=== PATIENT | male | born 1980 | race Hispanic/Latino ===

== ENCOUNTER 2022-05-18 18:50 | Emergency (ER) | payer OTHER ==
[~2022-05-18] VITALS: Ht 180.3 cm; Wt 98.0 kg
[2022-05-18 19:06] VITALS: BP 99/53
[2022-05-18] MEDS ORDERED: NS 1000ML 1,000 ML ONE ×3 (19:23→21:27)
[2022-05-18] MEDS ORDERED: ZOFRAN IV STA (19:28)
[2022-05-18] MEDS ORDERED: NS 1000ML 1,000 ML IV ONE ×3 (19:30→21:30)
[2022-05-18] MEDS ORDERED: ZOFRAN ONE (19:32)
[2022-05-18 19:52] LABS: BASOPHIL # 0.1 10^3/uL (0.0-0.1); BASOPHIL % 0.3 % (0.0-0.2); EOSINOPHIL # 0.1 10^3/uL (0.0-0.2); EOSINOPHIL % 0.4 % (0.0-5.0); LYMPHOCYTES # 2.96 10^3/uL1 (1.0-4.8); MEAN CORP HGB 32.3 pg (26-34); MONOCYTES # 1.5 10^3/uL (0.3-0.8); MONOCYTES % 8.3 % (5.0-12.0); NEUTROPHIL # 13.8 10^3/uL (1.8-7.7); NEUTROPHILS % 74.7 % (41.0-85.0); PLATELET COUNT 352 10^3/uL (150-400); RED CELL DISTRIBUTION WIDTH 12.1 % (11.5-14.5)
[2022-05-18 19:56] LABS: BILIRUBIN,URINE 1+ (NEGATIVE)
[2022-05-18 20:33] LABS: CARBON DIOXIDE 14.1 mmol/L (20.0-32)
[2022-05-18 21:40] LABS: BASOPHIL % 0.2 % (0.0-0.2); EOSINOPHIL % 0.1 % (0.0-5.0); LYMPHOCYTES # 1.12 10^3/uL1 (1.0-4.8); LYMPHOCYTES % 7.3 % (24.0-44.0); MEAN CORP HGB 32.4 pg (26-34); MONOCYTES # 0.8 10^3/uL (0.3-0.8); MONOCYTES % 5.4 % (5.0-12.0); NEUTROPHIL # 13.2 10^3/uL (1.8-7.7); NEUTROPHILS % 86.7 % (41.0-85.0); PLATELET COUNT 245 10^3/uL (150-400); RED CELL DISTRIBUTION WIDTH 12.3 % (11.5-14.5)
[2022-05-18 21:50] LABS: CARBON DIOXIDE 19.9 mmol/L (20.0-32)
--- NOTE | 2022-05-18 22:02 | ER.PDOC ---
General Chief Complaint: Extremities Stated Complaint: LEG CRAMPS,N/V Time seen by MD: 19:44 Source: patient Exam Limitations: no limitations History of Present Illness Initial Comments pt states he has been working outside and felt dehydrated. Skylar started vomiting today and it was oconstant. He felt like he was having heat exhaustion. NO known alleviating or exacerbating factors. Severity is modertte Allergies: Coded Allergies: Penicillins (Verified Allergy, Unknown, RASH, 05/18/22) Vital Signs First Vital Signs Date Time Temp Pulse Resp B/P (MAP) Pulse Ox O2 Delivery O2 Flow Rate FiO2 05/18/22 19:06 97.8 119 23 95 05/18/22 19:06 99/53 (68) Room Air* 0 21 Last Vital Signs Date Time Temp Pulse Resp B/P (MAP) Pulse Ox O2 Delivery O2 Flow Rate FiO2 05/18/22 22:32 97.8 90 23 134/96 (109) 95 Room Air* 0 21 Social History Drug Use: marijuana Reviewed Nursing Reviewed: Vital Signs, Abn. Noted, Nursing Assessment Constitutional: no symptoms reported EENTM: no symptoms reported Respiratory: no symptoms reported Cardiovascular: no symptoms reported Gastrointestinal: nausea, vomiting Musculoskeletal: no symptoms reported Skin: no symptoms reported Endocrine: no symptoms reported All Other Systems: Reviewed and Negative Physical Exam General Appearance: No Apparent Distress, WD/WN HEENT: PERRL/EOMI, Normal ENT Inspection, Pharynx Normal Neck: Non-Tender, Full Range of Motion, Supple, Normal Inspection Respiratory: chest non-tender, lungs clear, normal breath sounds, no respiratory distress Cardiovascular: Normal Peripheral Pulses, Regular Rate, Rhythm Gastrointestinal: Normal Bowel Sounds, No Organomegaly, Soft Back: Normal Inspection, No CVA Tenderness Extremities: Normal Range of Motion, Non-Tender Neurologic/Psychiatric: youth corrections officer II-XII NML as Tested, No Motor/Sensory Deficits, Alert, Normal Mood/Affect Skin: Normal Color, Warm/Dry Results/Orders Results/Orders Orders - ALYSON BERNSTEIN MD Cbc With Auto Diff (05/18/22 19:06) Comprehensive Metabolic Panel (05/18/22 19:06) Lipase (05/18/22 19:06) Urinalysis (05/18/22 19:06) Drug Scrn Med W Confirmation (05/18/22 19:06) Creatine Kinase Mb (05/18/22 19:06) 0.9 % Sodium Chloride (Ns 1000ml) (05/18/22 19:30) 0.9 % Sodium Chloride (Ns 1000ml) (05/18/22 19:34) 0.9 % Sodium Chloride (Ns 1000ml) (05/18/22 19:23) Ondansetron Hcl/Pf (Zofran) (05/18/22 19:28) 0.9 % Sodium Chloride (Ns 1000ml) (05/18/22 19:31) Ondansetron Hcl/Pf (Zofran) (05/18/22 19:32) Urine Culture (05/18/22 19:39) 0.9 % Sodium Chloride (Ns 1000ml) (05/18/22 21:30) 0.9 % Sodium Chloride (Ns 1000ml) (05/18/22 21:27) Cbc With Auto Diff (05/18/22 21:29) Basic Metabolic Panel (05/18/22 21:29) Vital Signs Date Time Temp Pulse Resp B/P (MAP) Pulse Ox O2 Delivery O2 Flow Rate FiO2 05/18/22 22:32 97.8 90 23 134/96 (109) 95 Room Air* 0 21 05/18/22 19:16 Room Air* 0 21 05/18/22 19:06 97.8 119 23 99/53 (68) 95 Room Air* 0 21 05/18/22 19:06 97.8 119 23 05/18/22 19:06 97.8 119 23 95 Administered Medications Medications (Trade) Dose Ordered Sig/Demetrius Route PRN Reason Start Time Stop Time Status Last Admin Dose Admin Ondansetron HCl (Zofran) 4 mg STAT STAT IV 05/18/22 19:28 05/18/22 19:29 DC 05/18/22 19:34 4 MG Sodium Chloride 1,000 ml @ 0 mls/hr Q0M ONCE IV 05/18/22 19:30 05/18/22 19:31 DC 05/18/22 19:24 999 MLS/HR Laboratory Tests Test 05/18/22 19:35 05/18/22 19:39 05/18/22 21:34 White Blood Count 18.5 10^3/uL (4.5-11.0) H 15.3 10^3/uL (4.5-11.0) H Red Blood Count 6.06 10^6/uL (4.50-5.90) H 5.27 10^6/uL (4.50-5.90) Hemoglobin 19.6 g/dL (13.9-16.3) H 17.1 g/dL (13.9-16.3) H Hematocrit 54.5 % (37.0-53.0) H 48.4 % (37.0-53.0) Mean Corpuscular Volume 89.9 fL (78-100) 91.8 fL (78-100) Mean Corpuscular Hemoglobin 32.3 pg (26-34) 32.4 pg (26-34) Mean Corpuscular Hemoglobin Concent 36.0 g/dL (33-36.5) 35.3 g/dL (33-36.5) Red Cell Distribution Width 12.1 % (11.5-14.5) 12.3 % (11.5-14.5) Platelet Count 352 10^3/uL (150-400) 245 10^3/uL (150-400) Mean Platelet Volume 11.0 fL (7.8-11.0) 10.9 fL (7.8-11.0) Neutrophils (%) (Auto) 74.7 % (41.0-85.0) 86.7 % (41.0-85.0) H Lymphocytes (%) (Auto) 16.0 % (24.0-44.0) L 7.3 % (24.0-44.0) L Monocytes (%) (Auto) 8.3 % (5.0-12.0) 5.4 % (5.0-12.0) Neutrophils # (Auto) 13.8 10^3/uL (1.8-7.7) H 13.2 10^3/uL (1.8-7.7) H Lymphocytes # (Auto) 2.96 10^3/uL1 (1.0-4.8) 1.12 10^3/uL1 (1.0-4.8) Monocytes # (Auto) 1.5 10^3/uL (0.3-0.8) H 0.8 10^3/uL (0.3-0.8) Absolute Immature Granulocyte (auto 0.06 10^3 u/L (0-2) 0.05 10^3 u/L (0-2) Absolute Eosinophils (auto) 0.1 10^3/uL (0.0-0.2) 0.0 10^3/uL (0.0-0.2) Immature Granulocytes % 0.30 % (0.00-0.50) 0.30 % (0.00-0.50) Eosinophils % 0.4 % (0.0-5.0) 0.1 % (0.0-5.0) Basophils % 0.3 % (0.0-0.2) H 0.2 % (0.0-0.2) Basophils # 0.1 10^3/uL (0.0-0.1) 0.0 10^3/uL (0.0-0.1) Sodium Level 134 mmol/L (132-145) 138 mmol/L (132-145) Potassium Level 3.5 mmol/L (3.6-5.2) L 3.6 mmol/L (3.6-5.2) Chloride Level 96.0 mmol/L (96-109) 102.0 mmol/L (96-109) Carbon Dioxide Level 14.1 mmol/L (20.0-32) L 19.9 mmol/L (20.0-32) L Anion Gap 27.4 19.7 Blood Urea Nitrogen 32 mg/dL (7-18) H 27 mg/dL (7-18) H Creatinine 1.92 mg/dL (0.59-1.40) H 1.47 mg/dL (0.59-1.40) H Estimated GFR () 47.2 (>/=60) 64.2 (>/=60) Est GFR (CKD-EPI)(Non-Afr [place]ian) 39.0 (>/=60) 53.1 (>/=60) BUN/Creatinine Ratio 16.0 18.0 Glucose Level 121 mg/dL (70-110) H 86 mg/dL (70-110) Calcium Level 10.8 mg/dL (8.4-10.5) H 8.7 mg/dL (8.4-10.5) Total Bilirubin 1.5 mg/dL (0.2-1.0) H Aspartate Amino Transferase (AST) 24 U/L (0-35) Alanine Aminotransferase (ALT) 30 U/L (12-78) Alkaline Phosphatase 81 U/L (50-136) Creatine Kinase MB 4.2 ng/mL (0.5-3.6) H Total Protein 10.0 g/dL (6.4-8.2) H Albumin 5.8 g/dL (3.4-5.0) H Globulin 4.2 Albumin/Globulin Ratio 1.380 Lipase 98 U/L (114-286) L Urine Collection Type RANDOM Urine Color YELLOW Urine Appearance HAZY Urine Bilirubin 1+ (NEGATIVE) H Urine Ictotest NEGATIVE (NEGATIVE) Urine Ketones TRACE (NEGATIVE) H Urine Specific [place] >=1.030 (1.005-1.030) Urine pH 5.0 (4.5-8.0) Urine Protein 2+ (NEGATIVE) H Urine Urobilinogen 1.0 E.U./dL (0.2) Urine Nitrate NEGATIVE (NEGATIVE) Urine Leukocyte Esterase NEGATIVE (NEGATIVE) Urine Glucose (Auto)(UA) NEGATIVE (NEGATIVE) Urine Blood TRACE-INTACT (NEGATIVE) H Urine RBC NONE SEEN RBC/HPF (NONE Urine WBC 0-2 WBC/HPF (0-2) Urine Squamous Epithelial Cells NONE SEEN (<=FEW) Urine Bacteria FEW (NONE SEEN) H Urine Hyaline Casts FEW (NONE SEEN) A Urine Mucus FEW (NONE SEEN) Urine Opiates Screen NEGATIVE (c/o300ng/mL) Urine Methadone Screen NEGATIVE (c/o300ng/mL) Urine Barbiturates Screen NEGATIVE (c/o200ng/mL) Urine Phencyclidine Screen NEGATIVE (c/o 25ng/mL) Ur Amphetamine/Methamphetamine NEGATIVE ([id number]/mL) Urine MDMA Screen (Ecstasy) NEGATIVE (c/o300ng/mL) Urine Benzodiazepines Screen NEGATIVE (c/o200ng/mL) Urine Cocaine Metabolite Screen NEGATIVE (c/o300ng/mL) Ur Tetrahydrocannabinol (THC) Scrn PRESUMPTIVE POSITIVE (c/o Progress Progress after the fluids, he felt much better so will dc ER DEPART Departure Time of Disposition: 22:22 Disposition: 01 HOME / SELF CARE / HOMELESS Impression: Primary Impression: Gastritis Additional Impressions: Cannabinoid hyperemesis syndrome Heat exhaustion Condition: Improved Referrals: PCP,UNKNOWN (PCP) PRIMARY CARE PROVIDER Duration or Time Spent with Pa: 11 Problem Qualifiers ALYSON BERNSTEIN MD May 18, 2022 22:02
[2022-05-18 22:32] VITALS: BP 134/96
== END 2022-05-18 22:35 | disposition home or self-care (01) ==
LOC: ER 18:50
DX: T67.5XXA Heat exhaustion, unspecified, initial encounter (principal); K29.70 Gastritis, unspecified, without bleeding; R11.10 Vomiting, unspecified; F12.90 Cannabis use, unspecified, uncomplicated; X58.XXXA Exposure to other specified factors, initial encounter; Y93.89 Activity, other specified; Y92.89 Other specified places as the place of occurrence of the external cause; Y99.8 Other external cause status; Z88.0 Allergy status to penicillin
CPT/HCPCS: 96361; 96374; 99283; 87086; 80053; 85025 ×2; 80349; 36415; 80048; 80307; 82553; 81001; 83690; J7030; J2405